=== PATIENT | male | born 1985 | race Caucasian/White ===

== ENCOUNTER 2023-02-19 08:34 | Outpatient (OUT) | payer OTHER, SELFPAY ==
--- NOTE | 2023-02-19 08:43 | XR_ITS ---
[address] [address] Patient Name: JAYLON SALGUERO MRN: [id number] date: 1985 Sex: M Assigned Patient Location: [facility] Current Patient Location: [facility] Accession/Order Number: [id number] Exam Date: 02/19/2023 09:00 Report Date: 02/19/2023 13:20 At the request of: NON-STAFF PHYSICIAN Procedure: XR lumbar spine 2-3V EXAM: XR lumbar spine 2-3V HISTORY: Arthritis M13.80 COMPARISON: None. TECHNIQUE: 3 views FINDINGS: Satisfactory alignment. Maintained vertebral body heights and disc spaces. No acute fracture or subluxation. Unremarkable soft tissues. XR/XR lumbar spine 2-3V IMPRESSION: Unremarkable exam. Electronically authenticated by: KALEIGH CHOUDHURY Date: 02/19/2023 13:20
--- NOTE | 2023-02-19 08:46 | XR_ITS ---
The [address] [address] Patient Name: JAYLON SALGUERO MRN: [id number] date: 1985 Sex: M Assigned Patient Location: [facility] Current Patient Location: [facility] Accession/Order Number: [id number] Exam Date: 02/19/2023 09:00 Report Date: 02/19/2023 18:44 At the request of: NON-STAFF PHYSICIAN Procedure: XR thoracic spine 2V Exam: Radiographs: XR thoracic spine 2V Reason for exam: Arthritis M13.80 Comparison: None XR/XR thoracic spine 2V IMPRESSION: No radiographically evident thoracic spine fractures or malalignment. Preserved intervertebral disc heights. Remainder of the thoracic spine radiographs is unremarkable. Electronically authenticated by: AWA MACK Date: 02/19/2023 18:44
== END 2023-02-19 08:35 | disposition home or self-care (01) ==
DX: M13.80 Other specified arthritis, unspecified site (principal)
CPT/HCPCS: 72070; 72100